=== PATIENT | male | born 1960 | race Caucasian/White ===

== ENCOUNTER 2020-02-11 14:03 | Emergency (ER) | payer OTHER ==
[2020-02-11 14:16] VITALS: BMI 27.0
[2020-02-11] MEDS ORDERED: BAMLANIVIMAB 700 MG in SODIUM CHLORIDE 180 ML IVPB ONE (14:31)
[2020-02-11 15:10] LABS: BASO % 0.7 % (0-2.0); EOS % 0.2 % (0-4.5); HEMATOCRIT 45.1 % (35.4-49); HEMOGLOBIN 14.8 GM/dL (11.7-16.9); LYMPH % 8.9 % (8-40); MCH 25.9 pg (25.7-33.7); MCHC 32.7 g/dl (32.0-35.9); MEAN CELL VOLUME 79.1 fl (80-96); MEAN PLT VOLUME 7.9 fl (7.5-11.1); MONO % 2.3 % (3.8-10.2); NEUT % 87.9 % (42.8-82.8); PLATELET COUNT 257 K/MM3 (134-434); RDW 14.6 % (11.9-15.9); WHITE BLOOD COUNT 9.8 K/mm3 (4.0-10.0)
[2020-02-11 15:33] LABS: POTASSIUM 4.4 mmol/L (3.5-5.1)
[2020-02-11 15:35] LABS: CALCIUM 9.3 mg/dL (8.5-10.1)
[2020-02-11 15:36] LABS: ALBUMIN 4.3 g/dl (3.4-5.0); BLOOD UREA NITROGEN 12.7 mg/dL (7-18)
[2020-02-11 15:39] LABS: CREATININE 1.1 mg/dL (0.55-1.3)
[2020-02-11 15:41] LABS: BILIRUBIN,TOTAL 0.4 mg/dL (0.2-1); TOT PROT 8.1 g/dl (6.4-8.2)
[2020-02-11 17:07] VITALS: BP 159/70; PULSE 92; TEMP 99.1
== END 2020-02-11 17:29 | disposition home or self-care (01) ==
LOC: JER 14:03
PROC: 3E0337Z Introduction of Electrolytic and Water Balance Substance into Peripheral Vein, Percutaneous Approach (ICD-10-PCS; principal; 2020-02-11)
DX: Z03.818 Encounter for observation for suspected exposure to other biological agents ruled out (principal)
CPT/HCPCS: 36415; 80053; 85025; 99284-25; Q0239